=== PATIENT | male | born 1975 | race Caucasian/White ===

== ENCOUNTER 2018-12-19 08:40 | Emergency (ER) | payer BC ==
[~2018-12-19] VITALS: Ht 167.6 cm; Wt 93.0 kg
[2018-12-19 08:59] VITALS: BP_SYST 139
[2018-12-19] MEDS ORDERED: MORPHINE 4 MG/ML INJ. SYRINGE IM ONE (09:45)
[2018-12-19] MEDS ORDERED: MORPHINE SULFATE 10 MG/ML VIAL ONE (10:16)
[2018-12-19 10:48] VITALS: BP_SYST 148
== END 2018-12-19 10:48 | disposition home or self-care (01) ==
LOC: SED 08:40
DX: M79.662 Pain in left lower leg (principal); R03.0 Elevated blood-pressure reading, without diagnosis of hypertension; Z88.8 Allergy status to other drugs, medicaments and biological substances
CPT/HCPCS: 96372; 99283; J2270